=== PATIENT | male | born 1990 | race African-American/Black ===

== ENCOUNTER → 2023-05-22 | Emergency (ER) | payer SELFPAY ==
[~2023-05-22] MED LIST: ACETAMINOPHEN 500 MG TAB ONE; CEFTRIAXONE 1000 MG/VIAL ONE; KETOROLAC 30 MG/ML INJ ONE; LIDOCAINE 1% MPF 2 ML AMPULE ONE; MORPHINE 4 MG/ML SYR ONE; PROMETHAZINE 25 MG TABLET ONE; predniSONE 20 MG TAB ONE
--- NOTE | 2023-05-22 06:55 | EDPHYS ---
Physician Documentation [facility] Name: Nasir Davison Age: 32 yrs Sex: Male : 1990 Arrival Date: 05/22/2023 Time: 03:38 Bed 6 Private MD: ED Physician Diaz Martin HPI: 05/22 03:54 This 32 yrs old Black Male presents to ER via EMS with complaints of Sore throat for 1 sp4 day . 06:15 Patient presents with acute onset sore throat starting estimated yesterday at 11 AM. sp4 Patient reports loss of voice and pain on swallowing. . Historical: - Home Meds: 03:41 None [Active]; rv - PMHx: 03:41 None; rv - PSHx: 03:41 None; rv - Immunization history:: Adult Immunizations up to date. - Social history:: Smoking status: Reported history of juuling and/or vaping. - Family history:: not pertinent. ROS: 06:15 Constitutional: Negative for fever, chills, and weight loss, Positive sore throat, loss sp4 of voice 06:15 All other systems are negative, Exam: 06:52 Constitutional: This is a well developed, well nourished patient who is awake, alert, sp4 and in no acute distress. Head/Face: Normocephalic, atraumatic. Eyes: Pupils equal round and reactive to light, extra-ocular motions intact. Lids and lashes normal. Conjunctiva and sclera are not injected. Cornea within normal limits. Periorbital areas with no swelling, redness, or edema. ENT: Nares patent. No nasal discharge, no septal abnormalities noted. Tympanic membranes are normal and external auditory canals are clear. Oropharynx with diffuse redness, exudates, uvula swelling. Signs of acute tonsillitis Neck: Trachea midline, no thyromegaly or masses palpated, and no cervical lymphadenopathy. Supple, full range of motion without nuchal rigidity, or vertebral point tenderness. Chest/axilla: Normal chest wall appearance and motion. Nontender with no deformity. No lesions are appreciated. Cardiovascular: Regular rate and rhythm with a normal S1 and S2. No gallops, murmurs, or rubs. Normal PMI, no JVD. No pulse deficits. Respiratory: Lungs have equal breath sounds bilaterally, clear to auscultation and percussion. No rales, rhonchi or wheezes noted. No increased work of breathing, no retractions or nasal flaring. Abdomen/GI: Soft, non-tender, with normal bowel sounds. No distension or tympany. No guarding or rebound. No evidence of tenderness throughout. Back: No spinal tenderness. No costovertebral tenderness. There is sacral decubitus ulcer that is covered by the wound VAC. Skin: Warm, dry with normal turgor. Normal color with no rashes, no lesions, and no evidence of cellulitis. MS/ Extremity: Pulses equal, no cyanosis. Neurovascular intact. Full, normal range of motion. Neuro: Awake and alert, GCS 15, oriented to person, place, time, and situation. Cranial nerves II-XII grossly intact. Motor strength 5/5 in all extremities. Sensory grossly intact. Psych: Awake, alert, with orientation to person, place and time. Behavior, mood, and affect are within normal limits Vital Signs: 03:40 BP 132 / 86; Pulse 80; Resp 18; Temp 98.2; Pulse Ox 100% ; Weight 74 kg; rv 04:45 BP 131 / 90; Pulse 76; Resp 17; Pulse Ox 100% ; jj7 05:45 BP 119 / 80; Pulse 71; Resp 16; Pulse Ox 100% ; jj7 06:44 BP 121 / 69; Pulse 80; Resp 17; Pulse Ox 100% ; jj7 MDM: 03:56 Patient medically screened. sp4 06:52 Differential Diagnosis altered mental status, sepsis, flu. Data reviewed: vital signs, sp4 nurses notes, EMS record. ED course: Patient much improved after medications, regular recommend cefdinir twice a day for 10 days. High-dose ibuprofen. And ondansetron as needed for nausea. . 05/22 04:46 Order name: Glucose, Ancillary Testing EDMS 05/22 04:29 Order name: Accucheck Blood Glucose; Complete Time: 04:36 sp4 Administered Medications: 04:04 Drug: Ketorolac IM 60 mg IM once Route: IM; Site: right gluteus; rv 07:07 Follow up: Response: Marked relief of symptoms j7 04:04 Drug: Promethazine PO 25 mg PO once Route: PO; rv 07:07 Follow up: Response: Marked relief of symptoms jj7 04:04 Drug: Acetaminophen PO 1000 mg PO once Route: PO; rv 07:07 Follow up: Response: Marked relief of symptoms jj7 04:15 Drug: Rocephin (cefTRIAXone) IM 1 grams IM once Route: IM; Site: left gluteus; rv 07:06 Follow up: Response: Marked relief of symptoms jj7 04:36 Drug: morphine IM 4 mg IM once Route: IM; Site: right deltoid; rv 07:07 Follow up: Response: Marked relief of symptoms jj7 04:36 Drug: predniSONE PO 60 mg PO once Route: PO; rv 07:06 Follow up: Response: Marked relief of symptoms jj7 Point of Care Testing: Blood Glucose: 04:36 Blood Glucose: 99 mg/dL; rv Ranges: Critical Glucose Levels:Adult <50 mg/dl or >400 mg/dl <40 mg/dl or >180 mg/dl Disposition Summary: 05/22/23 06:54 Discharge Ordered Notes: Location: Home sp4 Problem: new sp4 Symptoms: have improved sp4 Condition: Stable sp4 Diagnosis - Acute tonsillitis, unspecified sp4 Followup: sp4 - With: Private Physician - When: 7 - 10 days - Reason: Recheck today's complaints Discharge Instructions: - Discharge Summary Sheet sp4 - Tonsillitis, [id number] sp4 Forms: - Patient Portal Instructions sp4 Prescriptions: - cefdinir 300 mg Oral capsule - take 1 capsule ORAL route every 12 hours; 20 capsule; Refills: 0, Product sp4 Selection Permitted - Ibuprofen 800 mg Oral Tablet - take 1 tablet ORAL route every 8 hours As needed take with food; 30 tablet; sp4 Refills: 0, Product Selection Permitted - ondansetron 8 mg Oral Tablet,disintegrating - take 1 tablet ORAL route every 8 hours PRN nausea; 20 tablet; Refills: 0, sp4 Product Selection Permitted Signatures: Oseas Giles RN RN rv Diaz Martin MD MD sp4 Nicho Lopez RN jj7
--- NOTE | 2023-05-22 06:55 | ER ---
Nurse's Notes [facility] Name: Nasir Davison Age: 32 yrs Sex: Male : 1990 Arrival Date: 05/22/2023 Time: 03:38 Bed 6 Private MD: Diagnosis: Acute tonsillitis, unspecified Presentation: 05/22 03:40 Chief complaint: EMS states: PT IS COMPLAINING OF SEVERE PAIN ON THE THROAT, WITH rv BLEEDING. UNABLE TO TALK. WITH SOME SOB. Coronavirus screen: At this time, the client does not indicate any symptoms associated with coronavirus-19. Ebola Screen: No symptoms or risks identified at this time. Initial Sepsis Screen: Does the patient meet any 2 criteria? No. Patient's initial sepsis screen is negative. Does the patient have a suspected source of infection? No. Patient's initial sepsis screen is negative. Risk Assessment: Do you want to hurt yourself or someone else? Patient reports no desire to harm self or others. Onset of symptoms was May 22, 2023. 03:40 Method Of Arrival: EMS: [facility] rv 03:40 Acuity: JON 3 rv Triage Assessment: 03:41 General: Appears in no apparent distress. Behavior is calm, cooperative. Pain: rv Complains of pain in THROAT. EENT: Throat is clear. Neuro: Level of Consciousness is awake, alert, obeys commands, Oriented to person, place, time, situation. Cardiovascular: Capillary refill < 3 seconds Patient's skin is warm and dry. Respiratory: Airway is patent Respiratory effort is even, unlabored. GI: No signs and/or symptoms were reported involving the gastrointestinal system. : No signs and/or symptoms were reported regarding the genitourinary system. Derm: Skin is intact. Historical: - Home Meds: 03:41 None [Active]; rv - PMHx: 03:41 None; rv - PSHx: 03:41 None; rv - Immunization history:: Adult Immunizations up to date. - Social history:: Smoking status: Reported history of juuling and/or vaping. - Family history:: not pertinent. Screenin:41 [facility] ED Fall Risk Assessment (Adult) History of falling in the last 3 months, jj7 including since admission No falls in past 3 months (0 pts) Confusion or Disorientation No (0 pts) Intoxicated or Sedated No (0 pts) Impaired Gait No (0 pts) Mobility Assist Device Used No (0 pt) Altered Elimination No (0 pt) Score/Fall Risk Level 0 - 2 = Low Risk Oriented to surroundings, Maintained a safe environment, Educated pt \T\ family on fall prevention, incl call for assistance when getting out of bed. Abuse screen: Denies threats or abuse. Nutritional screening: No deficits noted. Tuberculosis screening: No symptoms or risk factors identified. Assessment: 03:40 Reassessment: SEE TRIAGE ASSESSMENT. jj7 Vital Signs: 03:40 BP 132 / 86; Pulse 80; Resp 18; Temp 98.2; Pulse Ox 100% ; Weight 74 kg; rv 04:45 BP 131 / 90; Pulse 76; Resp 17; Pulse Ox 100% ; jj7 05:45 BP 119 / 80; Pulse 71; Resp 16; Pulse Ox 100% ; jj7 06:44 BP 121 / 69; Pulse 80; Resp 17; Pulse Ox 100% ; jj7 ED Course: 03:39 Patient arrived in ED. rv 03:41 Triage completed. rv 03:41 Patient has correct armband on for positive identification. Bed in low position. Call jj7 light in reach. Warm blanket given. 03:41 Arm band placed on right wrist. rv 03:41 No provider procedures requiring assistance completed. jj7 03:50 Diaz Martin MD is Attending Physician. sp4 03:56 Oseas Giles RN is Primary Nurse. rv 06:45 Patient did not have IV access during this emergency room visit. jj7 Administered Medications: 04:04 Drug: Ketorolac IM 60 mg IM once Route: IM; Site: right gluteus; rv 07:07 Follow up: Response: Marked relief of symptoms jj7 04:04 Drug: Promethazine PO 25 mg PO once Route: PO; rv 07:07 Follow up: Response: Marked relief of symptoms jj7 04:04 Drug: Acetaminophen PO 1000 mg PO once Route: PO; rv 07:07 Follow up: Response: Marked relief of symptoms jj7 04:15 Drug: Rocephin (cefTRIAXone) IM 1 grams IM once Route: IM; Site: left gluteus; rv 07:06 Follow up: Response: Marked relief of symptoms jj7 04:36 Drug: morphine IM 4 mg IM once Route: IM; Site: right deltoid; rv 07:07 Follow up: Response: Marked relief of symptoms jj7 04:36 Drug: predniSONE PO 60 mg PO once Route: PO; rv 07:06 Follow up: Response: Marked relief of symptoms j7 Medication: 03:41 VIS not applicable for this client. jj7 Point of Care Testing: Blood Glucose: 04:36 Blood Glucose: 99 mg/dL; rv Ranges: Outcome: 06:54 Discharge ordered by MD. kolb 07:06 Discharged to home ambulatory, jj7 07:06 Condition: improved 07:06 Discharge instructions given to patient, Instructed on discharge instructions, medication usage, Demonstrated understanding of instructions, medications, Prescriptions given X 3, 07:07 Patient left the ED. jj7 Signatures: Oseas Giles RN Nicho Roldan RN RN jjDiaz Smith MD MD sp4
[2023-05-22 08:39] VITALS: BP 121/69; TEMP 98.2; O2SAT 100
== END ==
LOC: ER 03:38
DX: J03.90 Acute tonsillitis, unspecified (principal)
CPT/HCPCS: 82947; 96372; 99284; J0696; J7512; Q0169

== ENCOUNTER 2023-08-07 17:29 | Inpatient (IN) | payer OTHER, SELFPAY ==
[2023-08-07] MEDS ORDERED: NA CHLORIDE 0.9% 1,000 ML ONE (17:56)
[2023-08-07] MEDS ORDERED: dexAMETHasone 10 MG/ML VIAL ONE (17:56)
[2023-08-07] MEDS ORDERED: KETOROLAC 30 MG/ML INJ ONE (17:56)
[2023-08-07] MEDS ORDERED: AMPICILLIN/SULBACTAM 3GM/VIAL ONE (18:31)
[2023-08-07] MEDS ORDERED: NA CHLORIDE 0.9% 100 ML ONE (18:31)
[2023-08-07 18:44] LABS: Absolute Eosinophils 0.2 K/uL (0-0.5); Absolute Lymphocytes (CBC) 1.1 K/uL (0.7-4.9); Absolute Monocytes 1.2 K/uL (0.1-1.3); Absolute Neutrophil 10.6 K/uL (1.8-8.0); Basophils % 0.4 % (0-1.3); Eosinophils % 1.2 % (0-4.4); Hematocrit 42.6 % (39.6-49.0); Lymphocytes % 8.5 % (15.3-44.8); MCH 29.3 pg (27.0-35.0); MCHC 32.8 g/dL (32.0-36.0); MCV 89.4 fL (80-100); MPV 7.4 fL (7.6-11.3); Monocytes % 9.2 % (3.3-12.3); Neutrophils % 80.7 % (41.7-73.7); Platelets 320 thou/uL (152-406); RBC Red Blood Cell Count 4.77 M/uL (4.33-5.43); Red Cell Distribution Width 12.6 % (12.1-15.2)
[2023-08-07 18:45] LABS: Anion Gap 10.5 mEq/L (5.0-15.0); Bilirubin Total 1.1 mg/dL (0.2-1.0); Potassium 3.5 mEq/L (3.5-5.1)
[2023-08-07 18:46] LABS: Albumin 3.6 g/dL (3.4-5.0); Albumin/Globulin Ratio 0.8 (1.1-1.8); Globulin 4.4 g/dL (2.3-3.5)
--- NOTE | 2023-08-07 20:09 | RAD REPORT ---
EXAM DESCRIPTION: CT - Soft Tissue Neck W/Contr CLINICAL HISTORY: Peritonsillar swelling right COMPARISON: No comparisons TECHNIQUE All CT scans are performed using dose optimization technique as appropriate and may includ e automated exposure control or mA/KV adjustment according to patient size. FINDINGS: Nasopharyngeal tissues are normal in appearance. Fossa Rosenmller are normal. Both palatine tonsils sparse enlarged. Poorly defined 27 mm fluid collection in the right parapharyngeal space likely from right posterior m olar erosion and periapical abscess. Several enlarged lymph nodes are present bilateral jugular chain, largest on the right measuring 22 m m. Piriform sinuses are well aerated. Significantly enlarged submental and bilateral submandibular lymph nodes seen. Underaeration of the r ight piriform sinus. Thyroid gland is normal. Upper lung chin are clear. Included intracranial contents are unremarkable. IMPRESSION: Deep neck infection is suspected with an amorphous abscess in the right parapharyngeal s pace. There is significant presumably reactive lymphadenopathy in the neck present. This infection is likely odontogenic in origin.
[2023-08-07] MEDS ORDERED: NICOTINE 21 MG/PAT TD ONE (20:33)
--- NOTE | 2023-08-07 21:11 | ER ---
Nurse's Notes [facility] Name: Nasir Davison Age: 33 yrs Sex: Male : 1990 Arrival Date: 08/07/2023 Time: 17:29 Bed 19 Private MD: Diagnosis: Peritonsillar abscess;Acute tonsillitis, acute pharyngeal, peritonsillar and deep neck abscess Presentation: 08/06 17:36 Chief complaint: Patient states: R sided tooth pain, R side of throat pain, fever for 3 ll1 days. Cannot swallow well. Coronavirus screen: Client denies travel out of the [place] in the last 14 days. At this time, the client does not indicate any symptoms associated with coronavirus-19. Ebola Screen: Patient denies travel to an Ebola-affected area in the 21 days before illness onset. Initial Sepsis Screen: Does the patient meet any 2 criteria? No. Patient's initial sepsis screen is negative. Does the patient have a suspected source of infection? No. Patient's initial sepsis screen is negative. Risk Assessment: Do you want to hurt yourself or someone else? Patient reports no desire to harm self or others. Onset of symptoms was August 05, 2023. 17:36 Method Of Arrival: Ambulatory ll1 17:36 Acuity: JON 3 ll1 Historical: - Allergies: 17:35 seafood; ll1 - PMHx: 17:35 Hypertensive disorder; ll1 - PSHx: 17:35 None; ll1 - Immunization history:: Adult Immunizations up to date. - Social history:: Smoking status: Patient reports the use of cigarette tobacco products, denies chronic smoking, but will smoke occasionally, Reported history of juuling and/or vaping. Screenin:26 [facility] ED Fall Risk Assessment (Adult) History of falling in the last 3 months, nj1 including since admission No falls in past 3 months (0 pts) Confusion or Disorientation No (0 pts) Intoxicated or Sedated No (0 pts) Impaired Gait No (0 pts) Mobility Assist Device Used No (0 pt) Altered Elimination No (0 pt) Score/Fall Risk Level 0 - 2 = Low Risk Oriented to surroundings, Maintained a safe environment, Hourly rounding (assess needs \T\ fall precautionary measures) done. Abuse screen: Denies threats or abuse. Denies injuries from another. Nutritional screening: No deficits noted. Tuberculosis screening: No symptoms or risk factors identified. Assessment: 18:15 General: Appears in no apparent distress. uncomfortable, Behavior is calm, cooperative, nj1 appropriate for age. Pain: Complains of pain in Throat, right side Pain currently is 10 out of 10 on a pain scale. 18:15 Neuro: Level of Consciousness is awake, alert, obeys commands, Oriented to person, nj1 place, time, situation. Cardiovascular: Patient's skin is warm and dry. Respiratory: Airway is patent Respiratory effort is even, unlabored. EENT: Reports difficulty swallowing pain when swallowing since sunday. 19:22 Reassessment: Patient appears in no apparent distress at this time. Patient and/or nj1 family updated on plan of care and expected duration. Pain level reassessed. Patient is alert, oriented x 3, equal unlabored respirations, skin warm/dry/pink. Patient states feeling better. Patient states symptoms have improved. 20:25 Reassessment: Pt walks out of room, states he is going out to smoke, this RN explains nj1 to him he cannot go out to smoke. Pt agrees to go back in room to speak with Dr Concepcion Charge nurse, Pravin, aware and at bedside. 21:28 Reassessment: Patient appears in no apparent distress at this time. Patient and/or cm10 family updated on plan of care and expected duration. Pain level reassessed. Patient is alert, oriented x 3, equal unlabored respirations, skin warm/dry/pink. Assumed care of patient at this time. Pt updated on plan of care. Pt A\T\Ox4, respirations even and unlabored. Visitor at bedside. Call light in reach, patient changed into gown. 22:22 General: Appears in no apparent distress. comfortable, Behavior is calm, cooperative. cm10 Neuro: No deficits noted. Level of Consciousness is awake, alert, obeys commands, Oriented to person, place, time, situation. Respiratory: No deficits noted. Airway is patent Respiratory effort is even, unlabored, Respiratory pattern is regular, symmetrical. Vital Signs: 17:36 BP 144 / 86; Pulse 110; Resp 16; Temp 100.1; Pulse Ox 98% ; Weight 79.38 kg; Height 5 ll1 ft. 10 in. ; Pain 10/10; 19:21 Pain 8/10; nj1 19:22 BP 145 / 78; Pulse 109; Resp 18; Pulse Ox 100% ; Pain 8/10; nj1 19:30 BP 141 / 87; Pulse 98; Resp 18; Pulse Ox 98% on R/A; cm10 21:30 BP 137 / 85; Pulse 89; Resp 18; Pulse Ox 100% on R/A; cm10 22:00 BP 126 / 89; Pulse 91; Resp 16; Pulse Ox 99% on R/A; cm10 17:36 Body Mass Index 25.11 (79.38 kg, 177.8 cm) ll1 17:36 Pain Scale: Adult ll1 19:21 Pain Scale: Adult nj1 19:22 Pain Scale: Adult nj1 ED Course: 17:30 Patient arrived in ED. rg4 17:32 Bouchra Lugo MD is Attending Physician. sp3 17:38 Triage completed. ll1 17:38 Arm band placed on. ll1 17:41 Kina Goetz RN is Primary Nurse. nj1 18:15 Inserted saline lock: 20 gauge in right antecubital area, using aseptic technique. nj1 Blood collected. 18:26 Patient has correct armband on for positive identification. Bed in low position. Call nj1 light in reach. Provided Education on: call light, fall precautions. 19:56 CT Soft Tissue Neck W/contr In Process Unspecified. EDMS 20:23 Attending Physician role handed off by Bouchra Lugo MD sp4 20:23 Diaz Martin MD is Attending Physician. sp4 21:09 Bobbi Ngo MD is Hospitalizing Provider. sp4 21:10 Report given to Key PHIPPS. nj1 21:11 Primary Nurse role handed off by Kina Goetz, MOISE cm10 21:11 Key Casillas RN is Primary Nurse. cm10 21:28 Type And Screen Sent. cm10 21:28 PT-INR Sent. cm10 21:28 T\T\S collected, blood band applied to patient. cm10 21:40 Report faxed to 4th floor at this time. Confirmed by MOISE Ferrer. cm10 22:21 No provider procedures requiring assistance completed. Patient admitted, IV remains in cm10 place. Administered Medications: 18:15 Drug: Ketorolac IVP 30 mg IVP once Route: IVP; Site: right antecubital; nj1 19:21 Follow up: Pain 8/10 Adult; Response: No adverse reaction; Pain is decreased nj1 18:15 Drug: NS 0.9% IV 1000 ml IV at 1 bolus Per protocol; 1000 mL bolus Route: IV; Rate: 1 nj1 bolus; Site: right antecubital; 19:20 Follow up: Response: No adverse reaction; IV Status: Completed infusion; IV Intake: nj1 1000ml 18:16 Drug: Decadron - Dexamethasone IVP 10 mg IVP once Route: IVP; Site: right antecubital; nj1 19:21 Follow up: Response: No adverse reaction nj1 18:50 Drug: Ampicillin-Sulbactam Sodium IVPB 3 grams IVPB once over 30 mins; (mix in 100 mL nj1 NS) Route: IVPB; Infused Over: 30 mins; Site: right antecubital; 19:21 Follow up: Response: No adverse reaction; IV Status: Completed infusion; IV Intake: nj1 100ml 20:43 Drug: Nicotine Transdermal Patch 21 mg/24 hr 1 patches Transdermal once {Note: Left jb4 arm.} Route: Transdermal; Site: affected area; 21:38 Follow up: Response: No adverse reaction; Pt removed cm10 21:34 Drug: D5-1/2 NS IV 1000 ml IV at 125 ml/hr continuous Route: IV; Rate: 125 ml/hr; Site: cm10 right antecubital; 22:21 Follow up: Response: No adverse reaction; IV Status: Infusion continued upon admission cm10 21:35 Drug: Clindamycin IVPB 900 mg IVPB once over 30 mins; (mix in 50 mL) Route: IVPB; cm10 Infused Over: 30 mins; Site: right antecubital; 22:03 Follow up: Response: No adverse reaction; IV Status: Completed infusion; IV Intake: [id number] Medication: 22:21 VIS not applicable for this client. cm10 Intake: 19:20 IV: 1000ml; Total: 1000ml. nj1 19:21 IV: 100ml; Total: 1100ml. nj1 22:03 IV: 50ml; Total: 1150ml. cm10 Outcome: 21:10 Decision to Hospitalize by Provider. sp4 22:21 Admitted to Tele accompanied by nurse, via wheelchair, room 410, cm10 22:21 Condition: good 22:21 Instructed on the need for admit, 22:22 Patient left the ED. cm10 Signatures: Dispatcher [employer] Leslie Lei rg4 Jesus Waggoner, RN RN jb4 Radha Landa, RN RN ll1 Bouchra Lugo MD MD sp3 Diaz Martin MD MD sp4 Kina Goetz RN RN nj1 Key Casillas RN RN cm10
--- NOTE | 2023-08-07 21:11 | EDPHYS ---
Physician Documentation [facility] Name: Nasir Davison Age: 33 yrs Sex: Male : 1990 Arrival Date: 08/07/2023 Time: 17:29 Bed 19 Private MD: ED Physician Diaz Martin HPI: 08/06 18:20 This 33 yrs old Black Male presents to ER via Ambulatory with complaints of Toothache, sp3 Facial Swelling. 18:20 33-year-old male with history of hypertension now presents ED with sore throat, sp3 difficulty swallowing and swelling sensation in the back of his throat for several days. Symptoms are worsening and so he presents to the ED. Subjective fever also noted. He denies any other symptoms including headache, cough, congestion, rhinorrhea, chest pain, shortness of breath, abdominal pain, nausea, vomiting, diarrhea, rash, syncope, near syncope, known sick contacts, travel history or any other signs or symptoms on ROS at this time.. Historical: - Allergies: 17:35 seafood; ll1 - PMHx: 17:35 Hypertensive disorder; ll1 - PSHx: 17:35 None; ll1 - Immunization history:: Adult Immunizations up to date. - Social history:: Smoking status: Patient reports the use of cigarette tobacco products, denies chronic smoking, but will smoke occasionally, Reported history of juuling and/or vaping. ROS: 18:21 Constitutional: Negative for fever, chills, and weight loss, Eyes: Negative for injury, sp3 pain, redness, and discharge, Neck: Negative for injury, pain, and swelling, Respiratory: Negative for shortness of breath, cough, wheezing, and pleuritic chest pain, Abdomen/GI: Negative for abdominal pain, nausea, vomiting, diarrhea, and constipation, Back: Negative for injury and pain, MS/Extremity: Negative for injury and deformity, Skin: Negative for injury, rash, and discoloration, Neuro: Negative for headache, weakness, numbness, tingling, and seizure, Psych: Negative for depression, anxiety, suicide ideation, homicidal ideation, and hallucinations, Allergy/Immunology: Negative for hives, rash, and allergies, Endocrine: Negative for neck swelling, polydipsia, polyuria, polyphagia, and marked weight changes, Hematologic/Lymphatic: Negative for swollen nodes, abnormal bleeding, and unusual bruising, Exam: 18:22 Constitutional: This is a well developed, well nourished patient who is awake, alert, sp3 and in no acute distress. Head/Face: Normocephalic, atraumatic. Eyes: Pupils equal round and reactive to light, extra-ocular motions intact. Lids and lashes normal. Conjunctiva and sclera are non-icteric and not injected. Cornea within normal limits. Periorbital areas with no swelling, redness, or edema. Neck: Trachea midline, no thyromegaly or masses palpated, and no cervical lymphadenopathy. Supple, full range of motion without nuchal rigidity, or vertebral point tenderness. No Meningismus. Chest/axilla: Normal chest wall appearance and motion. Nontender with no deformity. No lesions are appreciated. Respiratory: Lungs have equal breath sounds bilaterally, clear to auscultation and percussion. No rales, rhonchi or wheezes noted. No increased work of breathing, no retractions or nasal flaring. Abdomen/GI: Soft, non-tender, with normal bowel sounds. No distension or tympany. No guarding or rebound. No evidence of tenderness throughout. Back: No spinal tenderness. No costovertebral tenderness. Full range of motion. Skin: Warm, dry with normal turgor. Normal color with no rashes, no lesions, and no evidence of cellulitis. MS/ Extremity: Pulses equal, no cyanosis. Neurovascular intact. Full, normal range of motion. Neuro: Awake and alert, GCS 15, oriented to person, place, time, and situation. Cranial nerves II-XII grossly intact. Motor strength 5/5 in all extremities. Sensory grossly intact. Cerebellar exam normal. Normal gait. Psych: Awake, alert, with orientation to person, place and time. Behavior, mood, and affect are within normal limits. 18:22 ENT: Posterior pharyngeal erythema and peritonsillar swelling particularly on the right side. Patient difficulty swallowing. Low-grade fever and heart rate 110.. Vital Signs: 17:36 BP 144 / 86; Pulse 110; Resp 16; Temp 100.1; Pulse Ox 98% ; Weight 79.38 kg; Height 5 ll1 ft. 10 in. ; Pain 10/10; 19:21 Pain 8/10; nj1 19:22 BP 145 / 78; Pulse 109; Resp 18; Pulse Ox 100% ; Pain 8/10; nj1 19:30 BP 141 / 87; Pulse 98; Resp 18; Pulse Ox 98% on R/A; cm10 21:30 BP 137 / 85; Pulse 89; Resp 18; Pulse Ox 100% on R/A; cm10 22:00 BP 126 / 89; Pulse 91; Resp 16; Pulse Ox 99% on R/A; cm10 17:36 Body Mass Index 25.11 (79.38 kg, 177.8 cm) ll1 17:36 Pain Scale: Adult ll1 19:21 Pain Scale: Adult nj1 19:22 Pain Scale: Adult nj1 MDM: 17:41 Patient medically screened. sp3 18:23 Data reviewed: vital signs, nurses notes, lab test result(s), radiologic studies. ED sp3 course: 33-year-old male with pharyngeal swelling. Consider peritonsillar abscess versus pharyngitis versus tonsillitis. CT scan of the neck is pending along with laboratory values. Disposition pending workup and patient course.. 20:43 Differential diagnosis: dental caries, gingivitis, dental abscess, pericoronitis, sp4 gingivostomatitis, Tonsillar abscess. Consideration of Admission/Observation Escalation of care including admission/observation considered. Management of patient was discussed with the following: Retail Loan Originator Assistant: Dr Nur with ENT , states will come to ER to evaluate the patient . 21:09 ED course: EXAM DESCRIPTION: CT - Soft Tissue Neck W/Contr CLINICAL HISTORY: sp4 Peritonsillar swelling right COMPARISON: No comparisons TECHNIQUE All CT scans are performed using dose optimization technique as appropriate and may include automated exposure control or mA/KV adjustment according to patient size. FINDINGS: Nasopharyngeal tissues are normal in appearance. Fossa Rosenm?ller are normal. Both palatine tonsils sparse enlarged. Poorly defined 27 mm fluid collection in the right parapharyngeal space likely from right posterior molar erosion and periapical abscess. Several enlarged lymph nodes are present bilateral jugular chain, largest on the right measuring 22 mm. Piriform sinuses are well aerated. Significantly enlarged submental and bilateral submandibular lymph nodes seen. Underaeration of the right piriform sinus. Thyroid gland is normal. Upper lung chin are clear. Included intracranial contents are unremarkable. IMPRESSION: Deep neck infection is suspected with an amorphous abscess in the right parapharyngeal space. There is significant presumably reactive lymphadenopathy in the neck present. This infection is likely odontogenic in origin. Signed By: Juventino Sanchez MD . ED course: ENT requested admission for ops so that patient can be reassessed in the morning. Okay to order clear liquid diet. . 08/06 17:49 Order name: CBC with Diff; Complete Time: 18:57 sp3 08/06 17:49 Order name: CMP; Complete Time: 18:57 sp3 08/06 20:31 Order name: Urine Drug Screen sp4 08/06 20:31 Order name: PT-INR sp4 08/06 20:31 Order name: Type And Screen sp4 08/06 21:19 Order name: Basic Metabolic Panel EDMS 08/06 21:19 Order name: Basic Metabolic Panel EDMS 08/06 21:19 Order name: CBC with Automated Diff EDMS 08/06 21:19 Order name: CBC with Automated Diff EDMS 08/06 21:19 Order name: PTT, Activated Partial Thromb EDMS 08/06 21:19 Order name: PTT, Activated Partial Thromb EDMS 08/06 17:49 Order name: CT Soft Tissue Neck W/contr; Complete Time: 20:23 sp3 08/06 21:19 Order name: CONS Physician Consult EDMS 08/06 17:49 Order name: IV Saline Lock; Complete Time: 18:24 sp3 08/06 17:49 Order name: Labs collected and sent; Complete Time: 18:24 sp3 08/06 17:49 Order name: NPO; Complete Time: 18:25 sp3 Administered Medications: 18:15 Drug: Ketorolac IVP 30 mg IVP once Route: IVP; Site: right antecubital; nj1 19:21 Follow up: Pain 8/10 Adult; Response: No adverse reaction; Pain is decreased nj1 18:15 Drug: NS 0.9% IV 1000 ml IV at 1 bolus Per protocol; 1000 mL bolus Route: IV; Rate: 1 nj1 bolus; Site: right antecubital; 19:20 Follow up: Response: No adverse reaction; IV Status: Completed infusion; IV Intake: nj1 1000ml 18:16 Drug: Decadron - Dexamethasone IVP 10 mg IVP once Route: IVP; Site: right antecubital; nj1 19:21 Follow up: Response: No adverse reaction nj1 18:50 Drug: Ampicillin-Sulbactam Sodium IVPB 3 grams IVPB once over 30 mins; (mix in 100 mL nj1 NS) Route: IVPB; Infused Over: 30 mins; Site: right antecubital; 19:21 Follow up: Response: No adverse reaction; IV Status: Completed infusion; IV Intake: nj1 100ml 20:43 Drug: Nicotine Transdermal Patch 21 mg/24 hr 1 patches Transdermal once {Note: Left jb4 arm.} Route: Transdermal; Site: affected area; 21:38 Follow up: Response: No adverse reaction; Pt removed cm10 21:34 Drug: D5-1/2 NS IV 1000 ml IV at 125 ml/hr continuous Route: IV; Rate: 125 ml/hr; Site: cm10 right antecubital; 22:21 Follow up: Response: No adverse reaction; IV Status: Infusion continued upon admission cm10 21:35 Drug: Clindamycin IVPB 900 mg IVPB once over 30 mins; (mix in 50 mL) Route: IVPB; cm10 Infused Over: 30 mins; Site: right antecubital; 22:03 Follow up: Response: No adverse reaction; IV Status: Completed infusion; IV Intake: [id number] Disposition Summary: 08/07/23 21:10 Hospitalization Ordered Notes: Hospitalization Status: Observation sp4 Provider: Bobbi Ngo [facility] sp[facility] Condition: Stable sp4 Problem: new sp4 Symptoms: have improved sp4 Bed/Room Type: Standard sp4 Room Assignment: 410(08/07/23 21:34) Diagnosis - Peritonsillar abscess sp4 - Acute tonsillitis, acute pharyngeal, peritonsillar and deep neck abscess sp4 Forms: - Medication Reconciliation Form sp4 - SBAR form sp4 - Leadership Thank You Letter sp4 Signatures: Dispatcher [employer] Jesus Drake RN RN jb4 Radha Landa RN RN ll1 Shana Vazquez Setul, MD MD sp3 Diaz Martin MD MD sp4 Kina Goetz RN RN nj1 Key Casillas RN RN cm10 Corrections: (The following items were deleted from the chart) 21:34 21:10 sp4 wm
[2023-08-07] MEDS ORDERED: D5 0.45 NS 1,000 ML IV ONE (21:13)
[2023-08-07] MEDS ORDERED: CLINDAMYCIN 900MG/D5W 900 MG/50 ML IVPB IV ONE (21:13)
[2023-08-07] MEDS ORDERED: ONDANSETRON 4 MG/2 ML VIAL IV PRN (21:15)
--- NOTE | 2023-08-07 21:19 | P.HP ---
Certification for Inpatient Patient admitted to: Inpatient With expected LOS: >2 Midnights Patient will require the following post-hospital care: None Practitioner: I am a practitioner with admitting privileges, knowledge of patient current condition, hospital course, and medical plan of care. Services: Services provided to patient in accordance with Admission requirements found in Title 42 Section 412.3 of the Code of Federal Regulations Patient History Date of Service: 08/07/23 Reason for admission: Fever; neck pain History of Present Illness: Patient is a 33-year-old gentleman came to the hospital with fever shakes and chills. Patient did have some difficulty with his swallowing for the last 3 days. He denies any drooling. He has been having pain and discomfort around his neck region. Patient was seen in the emergency room and his CT scan revealed a peritonsillar abscess. ENT was consulted in the emergency room. They wanted patient admitted to the hospital on IV antibiotics along with clear liquid diet. Otherwise, patient denies any other medical history. He has never had recurrent strep infections growing up. He denies any history of diabetes or any other medical conditions. He denies any drug use. She is wanting to eat but he was advised to do a clear liquid diet. At this time, patient will be admitted to the hospital on a clear liquid diet and will keep him n.p.o. after midnight and reevaluate him in the morning. Appreciate ENT input in patient's care. - Past Medical/Surgical History Past Medical History: Patient denies medical history Past Surgical History: Patient denies surgical history - Family History Father Family History: Reviewed- Non-Contributory - Social History Smoking Status: Current every day smoker Alcohol use: No CD- Drugs: No Review of Systems 10-point ROS is otherwise unremarkable Physical Examination - Physical Exam General: Alert, In no apparent distress, Oriented x3 HEENT: Atraumatic, PERRLA, Mucous membr. moist/pink, EOMI, Sclerae nonicteric Neck: Supple, 2+ carotid pulse no bruit, Without JVD or thyroid abnormality, LAD (Patient with significant anterior cervical lymphadenopathy) Respiratory: Clear to auscultation bilaterally, Normal air movement Cardiovascular: Regular rate/rhythm, Normal S1 S2 Gastrointestinal: Normal bowel sounds, Soft and benign, Non-distended, No tenderness Musculoskeletal: No clubbing, No swelling, No tenderness Integumentary: No rashes Neurological: Normal gait, Normal speech, Normal strength at 5/5 x4 extr, Normal tone, Sensation intact, Cranial nerves 3-12 intact, Normal affect Lymphatics: No axilla or inguinal lymphadenopathy, Other (Patient with anterior cervical lymphadenopathy) - Studies Laboratory Data (last 24 hrs) 08/07/23 08/07/23 18:15 18:15 WBC 13.10 H Hgb 14.0 Hct 42.6 Plt Count 320 Sodium 136 Potassium 3.5 BUN 9 Creatinine 1.14 Glucose 93 Total Bilirubin 1.1 H AST 15 ALT 21 Alkaline Phosphatase 70 Assessment & Plan - Problems (Diagnosis) (1) Peritonsillar abscess Current Visit: Yes Status: Acute (2) Anterior cervical lymphadenopathy Current Visit: Yes Status: Acute - Plan Plan: 1. Patient with peritonsillar abscess; will continue with IV fluids and IV antibiotics. Continue with pain control. ENT has seen the patient in the emergency room and they have recommended admission for IV antibiotics and clear liquid diet at this time. Will keep patient n.p.o. after midnight. Continue with pain control. Patient will be admitted for inpatient hospitalization. Discharge Plan: Home Plan to discharge in: Greater than 2 days - Advance Directives Does patient have a Living Will: No Does patient have a Durable POA for Healthcare: No - Code Status/Comfort Care Code Status Assessed: Yes Code Status: Full Code Critical Care: No Time Spent Managing PTS Care (In Minutes): 45
[2023-08-07 21:53] LABS: Barbiturates NEGATIVE (NEGATIVE); Benzodiazepines NEGATIVE (NEGATIVE); Cocaine NEGATIVE (NEGATIVE); METHAMPHETAM NEGATIVE (NEGATIVE); Methadone NEGATIVE (NEGATIVE); Opiates NEGATIVE (NEGATIVE); Phencyclidine NEGATIVE (NEGATIVE); THC Cannibis POSITIVE (NEGATIVE)
[2023-08-07 22:52] VITALS: O2SAT 99; BMI 25.1
[2023-08-07] MEDS: MORPHINE 2 MG/ML SYR IV PRN (23:04)
[2023-08-07] MEDS: METHYLPREDNISOLONE 40 MG INJ IV SCH (23:04)
[2023-08-07 23:07] LABS: PT Prothrombin Time 14.7 SECONDS (9.5-12.5); Protime INR 1.35
[2023-08-07] MEDS: NA CHLORIDE 0.9% 1,000 ML IV SCH (23:08)
--- NOTE | 2023-08-08 01:26 | CON ---
Date of Consultation: 08/07/2023 Reason For Consultation: Tonsillitis and concern for peritonsillar abscess versus odontogenic infection. History Of Present Illness: Mr. Davison is a 33-year-old male who was in his usual state of health until approximately 3 days ago when he began having sore throat, which has progressed and worsened. He has limited access to health care and came to the emergency room for further evaluation and treatment. He was noted by the emergency room staff to have significant tonsillitis with erythema and swelling of the tonsils with white exudate. He underwent a CT scan, which is detailed below. The patient is not currently having any significant pain and is asking for food. He was treated for similar symptoms by the emergency room about 3 months ago, but does not recall the details of his antibiotic treatment. Other than these 2 episodes, he does not have any significant history of recurrent tonsillitis. Past Medical History: None Past Surgical History: None Allergies: Shellfish Home Medications: None Social History: Tobacco user Physical Examination: General: The patient is in no acute distress. HEENT/Neck: Face is atraumatic and normocephalic. There is no significant swelling of the face or neck. He has no significant trismus. He has poor dentition with multiple carious and right inferior avulsed teeth. His oropharynx shows significant erythema with exudate of both the right and left tonsils. There is moderate swelling of the right tonsil, which is more pronounced than the left side. He is lying nearly flat and comfortably controlling his secretions. His external nose and external ears are unremarkable. He has mild tender palpable lymphadenopathy of the neck. Data: CT neck soft tissue with contrast was personally reviewed by me. There are multiple areas of periapical lucencies on the mandible and the maxilla. On the right side, there is significant swelling around the tonsil area with areas suspicious for phlegmon versus poorly defined abscess. Assessment: Acute tonsillitis with early possible peritonsillar abscess formation versus phlegmon. Given his clinical exam findings, I recommend observation with IV antibiotics, including clindamycin with option for IV steroids, continued IV hydration, clear liquid diet. There is no indication for acute surgical intervention. I suspect the patient will likely improve significantly with medical therapy and we will reassess his symptoms in the morning. If he continues to improve, we can plan for discharge with outpatient oral antibiotic and followup. SH/IONA Voice ID: [id number] Report ID: [id number] SHEREEN
[2023-08-08] MEDS: CLINDAMYCIN 900MG/D5W 900 MG/50 ML IVPB IV ONE (04:28)
[2023-08-08] MEDS: CLINDAMYCIN INJ 900 MG in NA CHLORIDE 0.9% 50 ML IV SCH (04:31)
[2023-08-08 04:51] VITALS: BP 137/58; TEMP 97.5
[2023-08-08 07:03] LABS: Absolute Basophils 0.1 K/uL (0-0.5); Absolute Lymphocytes (CBC) 0.6 K/uL (0.7-4.9); Absolute Monocytes 0.3 K/uL (0.1-1.3); Absolute Neutrophil 11.1 K/uL (1.8-8.0); Basophils % 0.7 % (0-1.3); Eosinophils % 0.1 % (0-4.4); Hematocrit 38.6 % (39.6-49.0); Hemoglobin 12.8 g/dL (13.6-17.9); Lymphocytes % 4.7 % (15.3-44.8); MCH 29.9 pg (27.0-35.0); MCHC 33.1 g/dL (32.0-36.0); MCV 90.1 fL (80-100); MPV 7.5 fL (7.6-11.3); Monocytes % 2.4 % (3.3-12.3); Neutrophils % 92.1 % (41.7-73.7); Nucleated Red Blood Cells % 0.1 % (0-0); Platelets 324 thou/uL (152-406); RBC Red Blood Cell Count 4.29 M/uL (4.33-5.43); Red Cell Distribution Width 12.6 % (12.1-15.2)
[2023-08-08 07:21] LABS: Anion Gap 9.3 mEq/L (5.0-15.0); Potassium 4.3 mEq/L (3.5-5.1)
[2023-08-08] MEDS ORDERED: INFLUENZA VACCINE (for 6+ mo) 0.5 ML DOSE IMVAC ONE (08:00)
[2023-08-08 09:23] LABS: Blood Morphology Comment NOT SEEN (NOT SEEN); Platelet Estimate ADEQ; White Blood Cell Scan OK (OK)
[2023-08-08] MEDS: CLINDAMYCIN 900MG/D5W 900 MG/50 ML IVPB IV SCH (10:37)
--- NOTE | 2023-08-08 12:48 | P.DS ---
Admission Date: 08/07/23 Discharge Date: 08/08/23 Disposition: ROUTINE DISCHARGE Discharge Condition: GOOD Reason for Admission: Fever; neck pain Consultations: Dr. Nur Procedures: None - Problems (1) Tonsillitis with exudate Current Visit: Yes Status: Acute (2) Tonsillitis, phlegmonous Current Visit: Yes Status: Acute (3) Anterior cervical lymphadenopathy Current Visit: Yes Status: Acute Brief History of Present Illness: Patient is a 33-year-old gentleman came to the hospital with fever shakes and chills. Patient did have some difficulty with his swallowing for the last 3 days. He denies any drooling. He has been having pain and discomfort around his neck region. Patient was seen in the emergency room and his CT scan revealed a peritonsillar abscess. ENT was consulted in the emergency room. They wanted patient admitted to the hospital on IV antibiotics along with clear liquid diet. Otherwise, patient denies any other medical history. He has never had recurrent strep infections growing up. He denies any history of diabetes or any other medical conditions. He denies any drug use. She is wanting to eat but he was advised to do a clear liquid diet. At this time, patient will be admitted to the hospital on a clear liquid diet and will keep him n.p.o. after midnight and reevaluate him in the morning. Appreciate ENT input in patient's care. Hospital Course: Mr. Davison is feeling significantly better today. He is able to swallow without difficulty. He tolerated Taco Mcdonald without problems. Discussed with ENT his significant improvement and will discharge him with p.o. antibiotics, steroids, and follow-up with Dr. Nur. Clindamycin 150mg 2 po three times daily x 10 days #60 Prednisone 20mg po BID x 5 days #10 Vital Signs/Physical Exam: Temp Pulse Resp BP Pulse Ox 97.5 F 82 17 137/58 L 99 08/08/23 04:00 08/08/23 04:00 08/08/23 09:07 08/08/23 04:00 08/08/23 09:07 General: Alert, In no apparent distress, Oriented x3 HEENT: Atraumatic, Normocephalic, Other (tonsils with erythema, exudate, poor dentition. No trismus. ) Neck: LAD Respiratory: Normal air movement Cardiovascular: Normal pulses, Regular rate/rhythm Capillary refill: <2 Seconds Gastrointestinal: Soft and benign Musculoskeletal: No clubbing, No swelling Integumentary: No rashes Neurological: Normal speech, Normal tone Lymphatics: No axilla or inguinal lymphadenopathy External genitalia: Deferred Rectal: Deferred Laboratory Data at Discharge: WBC 12.10 thou/uL (4.3-10.9) H 08/08/23 06:26 Hgb 12.8 g/dL (13.6-17.9) L D 08/08/23 06:26 Hct 38.6 % (39.6-49.0) L 08/08/23 06:26 Plt Count 324 thou/uL (152-406) 08/08/23 06:26 PT 14.7 SECONDS (9.5-12.5) H 08/07/23 21:21 INR 1.35 08/07/23 21:21 APTT 33.2 SECONDS (24.3-36.9) 08/08/23 06:26 Sodium 137 mEq/L (136-145) 08/08/23 06:26 Potassium 4.3 mEq/L (3.5-5.1) D 08/08/23 06:26 BUN 16 mg/dL (7-18) 08/08/23 06:26 Creatinine 1.07 mg/dL (0.70-1.30) 08/08/23 06:26 Glucose 142 mg/dL (74-106) H 08/08/23 06:26 Total Bilirubin 1.1 mg/dL (0.2-1.0) H 08/07/23 18:15 AST 15 U/L (15-37) 08/07/23 18:15 ALT 21 U/L (16-61) 08/07/23 18:15 Alkaline Phosphatase 70 U/L (45-117) 08/07/23 18:15 Home Medications: Clindamycin HCl 300 mg PO TID #60 cap 08/08/23 predniSONE [Deltasone] 20 mg PO BID #10 tab 08/08/23 New Medications: Clindamycin HCl 300 mg PO TID #60 cap predniSONE [Deltasone] 20 mg PO BID #10 tab Physician Discharge Instructions: Okay to DC IV and DC home Follow-up with Dr. Nur in 2 weeks Please call the inpatient unit for any questions or concerns regarding hospital stay Return to the ER for worsening symptoms Diet: Regular Followup: NONE,NONE [Primary Care Provider] - Carissa Nur MD [ACTIVE - CAN ADMIT] -
== END 2023-08-08 13:58 | disposition home or self-care (01) | DRG 153 ==
LOC: ER 17:29 → ERHOLD 21:15 → 4TH 22:14
PROVIDERS: ADMIT Hospitalist; ATTEND Internal Medicine
DX: J36 Peritonsillar abscess (principal); I10 Essential (primary) hypertension; F17.210 Nicotine dependence, cigarettes, uncomplicated; R59.1 Generalized enlarged lymph nodes; Z79.52 Long term (current) use of systemic steroids; Z91.013 Allergy to seafood
CPT/HCPCS: 36415; 70491; 80048; 80053; 80307; 85025; 85610; 85730; 86850; 86900; 86901; 96361; 96365; 96367; 96375; 99285; J0295; J1100; J2270; J2920; J7030; J7799; Q9967